=== PATIENT | female | born 1980 | race African-American/Black ===

== ENCOUNTER 2017-04-26 19:32 | Emergency (ER) | payer SELFPAY ==
[~2017-04-26] VITALS: Ht 170.2 cm; Wt 100.0 kg
[2017-04-26 19:36] VITALS: BP 126/77; PULSE 87; RESP 14; TEMP 98.3; O2SAT 100
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
[2017-04-26] MEDS ORDERED: DICL75TA PO (21:49)
[2017-04-26] MEDS ORDERED: CYCL1TAB29 PO (21:49)
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
[2017-04-26] MEDS ORDERED: CYCLOBENZAPRINE HCL 10 MG TAB PO ONE (22:00)
[2017-04-26] MEDS ORDERED: IBUPROFEN 600 MG TAB PO ONE (22:00)
== END 2017-04-26 22:35 | disposition home or self-care (01) ==
LOC: NEPD 19:32
DX: M54.2 Cervicalgia (principal); M54.5 Low back pain; V43.62XA Car passenger injured in collision with other type car in traffic accident, initial encounter; Y92.414 Local residential or business street as the place of occurrence of the external cause
CPT/HCPCS: 99284